=== PATIENT | female | born 1985 | race African-American/Black ===

== ENCOUNTER 2018-03-05 15:49 | Emergency (ER) | payer OTHER ==
[~2018-03-05] VITALS: Ht 165.1 cm; Wt 97.5 kg
--- NOTE | ~2018-03-05 | EKG ---
[place] [address] [employer] [facility] [place] [address] ELECTROCARDIOGRAM REPORT Name: EVA LINCOLN Room #: SALVADOR Orantes#: [id number] Admission: 03/05/18 Attend Phys: Discharge: 03/05/18 Date of : 81 Report #: [id number] THIS REPORT FOR: //name// [facility] ED Test Date: 2018-03-05 Test Time: 18:22:36 Pat Name: EVA LINCOLN Department: Room: Gender: F Hospital Intern: LILLIAN : 1985 Requested By: Mikael Yanes Order Number: [id number] MD: Jeremiah Camp Measurements Intervals Rudolph Rate: 69 P: 51 NM: 165 QRS: -12 QRSD: 97 T: -12 QT: 502 QTc: 538 Interpretive Statements Sinus rhythm Borderline abnrm T, anterolateral leads No previous ECG available for comparison Electronically Signed On 03-06-2018 8:20:18 CDT by Jeremiah Camp [email or web address] <ELECTRONICALLY SIGNED> By: Jeremiah Camp MD 03/06/18 0820 182 182 MD ROSALINA Lima
[~2018-03-05 15:49] MED LIST: CIPRO500 MG PO; DIPHENHIST50 MG PO; LEVOTHYROXINE 0.15MG PO; OSELB75 PO; PREDNISONE 20 M20 MG PO; PROVENTIL HFA6.7 G1 INH
[2018-03-05 18:52] LABS: ABSOLUTE NEUTROPHILS 3.4 thou/uL (1.4-8.2); BASOPHILS 0.6 % (0.0-2.0); EOSINOPHILS 1.7 % (0.0-3.0); HEMATOCRIT 34.4 % (37.0-47.0); HEMOGLOBIN 11.2 gm/dL (12.0-15.0); LYMPHOCYTES 26.5 % (24.0-44.0); MCH 22.6 pg (26.0-34.0); MCHC 32.7 g/dL (28.0-37.0); MCV 68.9 fL (80.0-100.0); MONOCYTES 8.4 % (1.0-8.0); PLATELET COUNT 203 thou/uL (150-400); POLYS 62.8 % (36.0-66.0); RBC 4.99 mil/uL (4.20-5.00); RDW 15.3 % (10.5-14.5); WBC 5.4 thou/uL (4.0-11.0)
[2018-03-05 18:59] LABS: CALCIUM 9.6 mg/dL (8.5-10.1); POTASSIUM 3.9 mmol/L (3.5-5.1)
[2018-03-05 19:05] LABS: ALBUMIN 3.7 g/dL (3.4-5.0); TOTAL BILIRUBIN 0.6 mg/dL (<0.1-1.0); TOTAL PROTEIN 8.1 g/dL (6.4-8.2)
[2018-03-05 19:54] LABS: ANISOCYTOSIS 1+; HYPOCHROMASIA 1+
[2018-03-05 20:17] LABS: URINE BILIRUBIN NEGATIVE (Negative); URINE BLOOD NEGATIVE (Negative); URINE CLARITY CLOUDY; URINE COLOR YELLOW; URINE GLUCOSE-RANDOM* NEGATIVE (Negative); URINE KETONES TRACE (Negative); URINE NITRITE-REFLEX NEGATIVE (Negative); URINE PROTEIN (DIPSTICK) NEGATIVE (Negative); URINE SPECIFIC GRAVITY >= 1.030 (1.005-1.035); URINE UROBILINOGEN 0.2 E.U./dl (0.2-1.0)
[2018-03-05 20:21] LABS: URINE LEUKOCYTES-REFLEX TRACE (Negative)
[2018-03-05 20:54] VITALS: BP 120/87
== END 2018-03-05 20:55 | disposition home or self-care (01) ==
LOC: ER 15:49
PROVIDERS: Physician Assistant
DX: R20.2 Paresthesia of skin (principal); N64.4 Mastodynia; E03.9 Hypothyroidism, unspecified; R42 Dizziness and giddiness; Z88.8 Allergy status to other drugs, medicaments and biological substances; E05.00 Thyrotoxicosis with diffuse goiter without thyrotoxic crisis or storm; Z90.49 Acquired absence of other specified parts of digestive tract